=== PATIENT | female | born 1980 | race Caucasian/White ===

== ENCOUNTER 2023-11-09 20:09 | Emergency (ER) | payer BC ==
[~2023-11-09] VITALS: Ht 165.1 cm; Wt 108.0 kg
[2023-11-09] MEDS ORDERED: Ondansetron Hydrochloride 4 MG/2 ML VIAL IV ONE (20:25)
[2023-11-09] MEDS ORDERED: SODIUM CHLORIDE 0.9% 1,000 ML IV ONE (20:25)
[2023-11-09 20:39] LABS: BASO % 0.2 % (0.0-1.0); EOS # 0.2 10*3/uL (0.0-0.4); EOS % 1.4 % (1.0-4.0); HEMATOCRIT 42.7 % (37.0-47.0); LYMPH # 1.6 10*3/uL (1.3-4.4); LYMPH % 10.9 % (27.0-41.0); MEAN CELL VOLUME 80.6 fl (81.0-99.0); MEAN CORPUSCULAR HGB CONC 32.3 g/dl (33.0-37.0); MEAN PLATELET VOLUME 9.5 fl (9.6-12.3); MONO # 1.2 10*3/uL (0.1-1.0); MONO % 7.9 % (3.0-9.0); NEUT # 11.8 10*3/uL (2.3-7.9); NEUT % 79.3 % (47.0-73.0); PLATELET COUNT AUTOMATED 426 10*3/uL (130-400); RED CELL DISTRI WIDTH 13.2 % (0-14.5); WHITE BLOOD COUNT 14.9 10*3/uL (4.8-10.8)
[2023-11-09] MEDS ORDERED: TREMFYA100 MG/11 SQ (20:45)
[2023-11-09] MEDS ORDERED: Synthroid,Levo25 MCG PO (20:45)
[2023-11-09 20:59] LABS: ALKALINE PHOSPHATASE 91 U/L (46-116); BUN 10 mg/dl (9-23); CHLORIDE 102 mmol/L (98-107); LIPASE 48 U/L (12-53); POTASSIUM 4.1 mmol/L (3.4-5.1); SGPT/ALT 45 U/L (5-49); TOTAL PROTEIN 7.4 gm/dL (6.0-8.0)
[2023-11-09] MEDS ORDERED: ACETAMINOPHEN 325 MG TAB PO ONE (21:00)
[2023-11-09 21:51] LABS: BILIRUBIN Negative (Negative); BLOOD Negative (Negative); CLARITY Clear (Clear); COLOR Yellow (Yellow); GLUCOSE Negative (Negative); KETONE Negative (Negative); LEUKO ESTERASE 1+ (Negative); NITRITE Negative (Negative)
[2023-11-09 22:02] LABS: BACTERIA 2+; RBC 0-2 rbc/hpf (0-2)
[2023-11-09] MEDS ORDERED: CIPRO500 MG PO (22:03)
[2023-11-09] MEDS ORDERED: Ceftriaxone Sodium 1 GM/10 ML SYR IV ONE (22:10)
== END 2023-11-09 22:41 | disposition home or self-care (01) ==
LOC: ED 20:09
PROVIDERS: Physician Assistant Medical
DX: N39.0 Urinary tract infection, site not specified (principal); E03.9 Hypothyroidism, unspecified; Z90.49 Acquired absence of other specified parts of digestive tract